=== PATIENT | female | born 1965 ===

== ENCOUNTER 2020-02-24 08:00 | Outpatient (CLI) | payer SELFPAY ==
--- NOTE | 2020-02-24 12:39 | XRAY Report ---
Reason: LYMPHOMA, MULTIPLE SITES Procedure Date: 02/24/2020 Accession Number: [id number] / [id number] Procedure: XRS - Chest 2 View X-Ray CPT Code: 03835 Final Report FULL RESULT: PROCEDURE: Chest 2 View X-Ray INDICATIONS: LYMPHOMA, MULTIPLE SITES TECHNIQUE: 2 view(s) of the chest. COMPARISON: None. FINDINGS: Surgical changes and devices: None. Lungs and pleura: Small left pleural effusion. No effusion on the right. No pneumothorax identified. Lungs are clear. Mediastinum: Mediastinal contours appear normal. Heart size is normal. Bones and chest wall: No suspicious bony abnormalities. Probable L2 compression fracture. Abnormal contour of the left breast/left chest wall. IMPRESSION: 1. Small left pleural effusion. 2. Lungs are clear clear. 3. Abnormal contour of the left breast which may be related to prior surgery or [place] syndrome. Recommend clinical correlation. 4. Probable L2 compression fracture. Reviewed by: Boyd Dejesus MD on 02/24/2020 12:38 PM PDT Approved by: Boyd Dejesus MD on 02/24/2020 12:38 PM PDT Station ID: [id number]
[2020-02-24 15:28] LABS: BASOPHILS % (AUTO) 0.8 %; EOSINOPHILS # (AUTO) 0.1 10^3/uL (0.0-0.7); EOSINOPHILS % (AUTO) 1.4 %; HGB - HEMOGLOBIN 11.4 g/dL (12.0-16.0); LYMPHOCYTES # (AUTO) 0.4 10^3/uL (1.5-3.5); LYMPHOCYTES % (AUTO) 11.1 %; MEAN CORPUSCULAR HEMOGLOBIN 31.6 pg (27.0-31.0); MEAN CORPUSCULAR HGB CONC 31.7 g/dL (32.0-36.0); MEAN CORPUSCULAR VOLUME 99.7 fL (81.0-99.0); MEAN PLATELET VOLUME 9.3 fL (7.9-10.8); MONOCYTES # (AUTO) 0.4 10^3/uL (0.0-1.0); NEUTROPHILS # (AUTO) 2.7 10^3/uL (1.5-6.6); NEUTROPHILS % (AUTO) 76.4 %; PLT - PLATELET COUNT 273 10^3/uL (130-450); RED BLOOD COUNT 3.61 10^6/uL (4.20-5.40); RED CELL DISTRIBUTION WIDTH 13.2 % (12.0-15.0); WHITE BLOOD COUNT 3.6 x10^3/uL (4.8-10.8)
[2020-02-24 15:44] LABS: ALBUMIN 3.8 g/dL (3.2-5.5); BILIRUBIN,TOTAL 0.7 mg/dL (0.2-1.0); CALCIUM 9.7 mg/dL (8.5-10.3); CREATININE 0.7 mg/dL (0.4-1.0); TOTAL PROTEIN 7.5 g/dL (6.7-8.2)
== END 2020-02-24 23:59 | disposition home or self-care (01) ==
LOC: DI.S 08:00
PROVIDERS: ATTEND Physician Assistant Medical
DX: J90 Pleural effusion, not elsewhere classified (principal); R92.8 Other abnormal and inconclusive findings on diagnostic imaging of breast; C85.98 Non-Hodgkin lymphoma, unspecified, lymph nodes of multiple sites
CPT/HCPCS: 36415; 71046; 80053; 84443; 85025